=== PATIENT | female | born 1980 | race American Indian/Alaskan Native ===

== ENCOUNTER 2020-03-02 02:44 | Observation (INO) | payer OTHER ==
[2020-03-02] MEDS ORDERED: ASPIRIN 325 MG TAB PO ONE (03:17)
[2020-03-02 03:46] LABS: Basophils # (Auto) 0.1 K/mm3 (0.0-0.1); Eosinophils # (Auto) 0.1 K/mm3 (0.0-0.4); Eosinophils % (Auto) 0.8 % (0.0-4.3); Hematocrit 34.6 % (30.3-42.9); Hemoglobin 11.4 gm/dl (10.1-14.3); Lymphocytes # (Auto) 2.7 K/mm3 (1.2-5.4); Lymphocytes % (Auto) 22.8 % (13.4-35.0); Mean Corpuscular HGB Conc 33 % (30-34); Mean Corpuscular Volume 72 fl (79-97); Monocytes # (Auto) 0.7 K/mm3 (0.0-0.8); Monocytes % (Auto) 5.7 % (0.0-7.3); Platelet Count 353 K/mm3 (140-440); Red Cell Distribution Width 19.5 % (13.2-15.2)
[2020-03-02] MEDS ORDERED: ONDANSETRON 4 MG/2 ML INJ IV ONE (04:01)
[2020-03-02] MEDS ORDERED: MORPHINE 4 MG/1 ML INJ IV ONE (04:01)
--- NOTE | 2020-03-02 04:05 | Emergency Department Report ---
ED Chest Pain HPI - General Chief Complaint: Chest Pain Stated Complaint: CHEST PAIN Time Seen by Provider: 03/02/20 03:40 Source: patient Mode of arrival: Ambulatory Limitations: No Limitations - History of Present Illness Initial Comments: Patient is 39 years old female with history of asthma. Patient presented to the ER complaining of sudden onset of right chest pain approximately 3 hours ago. Patient described her pain as aching and tightness sometimes. Patient stated that pain radiated to her right shoulder and epigastric area. She described described her pain as 10 out of 10. Patient denied any left-sided chest pain. She denied any fever or chills. No cough or shortness of breath. MD Complaint: chest pain -: Sudden, hour(s) (3) Onset: during rest Pain Location: right chest Severity: moderate Quality: sharp - Related Data Allergies Allergy/AdvReac Type Severity Reaction Status Date / Time bupropion [From Wellbutrin] Allergy Rash Verified 03/02/20 03:17 Heart Score - HEART Score History: Slightly suspicious EKG: Normal Age: < 45 Risk factors: No known risk factors Troponin: < normal limit HEART Score: 0 - Critical Actions Critical Actions: 0-3 pts:0.9-1.7%risk of adverse cardiac event.Candidate for discharge ED Review of Systems ROS: Stated complaint: CHEST PAIN Other details as noted in HPI Comment: All other systems reviewed and negative Constitutional: denies: chills, fever Respiratory: denies: cough, shortness of breath, SOB with exertion, SOB at rest, wheezing Cardiovascular: chest pain Gastrointestinal: denies: abdominal pain, nausea, vomiting Musculoskeletal: denies: back pain Neurological: denies: headache, weakness, numbness, paresthesias, confusion ED Past Medical Hx - Past Medical History Previous Medical History?: Yes Hx Psychiatric Treatment: Yes (Depression) Hx Asthma: Yes - Surgical History Past Surgical History?: No - Social History Smoking Status: Never Smoker Substance Use Type: Marijuana ED Physical Exam - General Limitations: No Limitations General appearance: alert, in distress - Head Head exam: Present: atraumatic, normocephalic, normal inspection - Eye Eye exam: Present: normal appearance, PERRL - ENT ENT exam: Present: normal exam, normal orophraynx, mucous membranes moist - Neck Neck exam: Present: normal inspection, full ROM. Absent: tenderness, meningismus, lymphadenopathy, thyromegaly - Respiratory Respiratory exam: Present: normal lung sounds bilaterally - Cardiovascular Cardiovascular Exam: Present: regular rate, normal rhythm, normal heart sounds - GI/Abdominal GI/Abdominal exam: Present: soft, normal bowel sounds. Absent: distended, tend erness, guarding, rebound, rigid, organomegaly, mass, bruit, pulsatile mass, hernia - Extremities Exam Extremities exam: Present: normal inspection, full ROM, normal capillary refill. Absent: pedal edema, calf tenderness - Back Exam Back exam: Present: normal inspection, full ROM. Absent: CVA tenderness (R), CVA tenderness (L) - Neurological Exam Neurological exam: Present: alert, oriented X3, CN II-XII intact, normal gait, reflexes normal. Absent: motor sensory deficit - Psychiatric Psychiatric exam: Present: normal mood, anxious - Skin Skin exam: Present: warm, intact, normal color ED Course Vital Signs 03/02/20 03/02/20 03/02/20 03:21 04:15 04:17 Temperature 98.7 F Pulse Rate 77 76 Respiratory 18 14 18 Rate Blood Pressure 164/86 131/71 O2 Sat by Pulse 96 100 Oximetry 03/02/20 03/02/20 03/02/20 04:30 04:45 04:47 Temperature Pulse Rate 79 81 Respiratory 18 23 18 Rate Blood Pressure 135/67 132/65 O2 Sat by Pulse 92 95 Oximetry 03/02/20 03/02/20 03/02/20 05:00 06:00 06:15 Temperature Pulse Rate 76 100 H 87 Respiratory 20 22 20 Rate Blood Pressure 133/68 115/68 125/60 O2 Sat by Pulse 96 98 99 Oximetry 03/02/20 03/02/20 06:30 06:41 Temperature Pulse Rate 84 96 H Respiratory 20 18 Rate Blood Pressure 122/66 122/66 O2 Sat by Pulse 96 88 Oximetry ED Medical Decision Making - Lab Data Result diagrams: 03/02/20 03:23 03/02/20 03:23 - Radiology Data Radiology results: report reviewed - Medical Decision Making Patient is 39 years old female with history of asthma. Patient presented to the ER complaining of sudden onset of right chest pain approximately 3 hours ago. Patient described her pain as aching and tightness sometimes. Patient stated that pain radiated to her right shoulder and epigastric area. She described described her pain as 10 out of 10. Patient denied any left-sided chest pain. She denied any fever or chills. No cough or shortness of breath. Labs reviewed and showed lower white blood cells. Chest x-ray is unremarkable. D-dimer is negative. Right upper quadrant ultrasound showed cholelithiasis and acute cholecystitis. I discussed the patient with , surgeon, he advised admit the patient to the hospitalist for further management. I discussed the patient with Dr. Angel, he agreed to admit the patient to medical service for further management. Critical care attestation.: If time is entered above; I have spent that time in minutes in the direct care of this critically ill patient, excluding procedure time. ED Disposition Clinical Impression: Abdominal pain, Acute cholecystitis Disposition: 09 OP ADMIT IP TO THIS HOSP Is pt being admited?: Yes Condition: Stable
[2020-03-02 04:06] LABS: BUN/Creatinine Ratio 19; Blood Urea Nitrogen 15 mg/dL (7-17); Calcium 9.5 mg/dL (8.4-10.2); Hemolysis Index 1
[2020-03-02 04:26] LABS: INR 0.93 (0.87-1.13)
[2020-03-02 04:27] LABS: Partial Thromboplastin Time 26.5 Sec. (24.2-36.6)
[2020-03-02 04:42] LABS: Alanine Aminotransferase 20 units/L (7-56); Albumin 4.3 g/dL (3.9-5)
--- NOTE | 2020-03-02 04:43 | XRay Report ---
CHEST 1 VIEW INDICATION: Chest Pain. COMPARISON: None. FINDINGS: Support devices: None. Heart: Normal. Lungs/Pleura: No acute pulmonary or pleural findings. IMPRESSION: 1. No acute findings. Signer Name: Vj Begum MD Signed: 03/02/2020 4:39 AM Workstation Name: [id number]
[2020-03-02 04:44] LABS: Bilirubin,Direct < 0.2 mg/dL (0-0.2)
--- NOTE | 2020-03-02 05:44 | Ultrasound Report ---
ULTRASOUND ABDOMEN, LIMITED (RIGHT UPPER QUADRANT) INDICATION: Right upper quadrant pain.. COMPARISON: None available. FINDINGS: Pancreas: Visualized portion shows no significant abnormality. Liver: Normal. Gallbladder: There are multiple gallstones. There is mild gallbladder wall thickening. Bile ducts: Normal. Common Bile Duct measures 1-2 mm. Free fluid: None. Additional Findings: None. IMPRESSION: 1. Cholelithiasis with mild gallbladder wall thickening. This could be seen in the setting of acute c holecystitis. There is no common duct dilatation. Signer Name: Vj Begum MD Signed: 03/02/2020 5:39 AM Workstation Name: [id number]
[2020-03-02] MEDS ORDERED: PIPERACILLIN/TAZOBACTAM 3.375 3.375 GM/50 ML BAG IV ONE (05:51)
[2020-03-02] MEDS ORDERED: ONDANSETRON 4 MG/2 ML INJ IV PRN (06:42)
--- NOTE | 2020-03-02 06:51 | History and Physical Report ---
History of Present Illness Date of examination: 03/02/20 Date of admission: 03/02/20 06:00 Chief complaint: Chest pain Abdominal pain History of present illness: 39-year-old female with known history of asthma presented to the emergency room today complaining of abdominal pain which is right-sided radiating towards the right side of her chest, right shoulder and mid abdomen. Symptoms started suddenly and has been ongoing for about 3 hours prior to reporting to the emergency room. Pain felt like a dull ache. She has been having nausea and vomiting. On a scale of 10 pain was about 10/10 in severity. She denies any fever or chills, no headache or dizziness, no hematuria or dysuria. No bright red blood per rectum and no melena. Patient denies any sick contacts and no recent travel, denies any contact with anyone with COVID-19. Work-up in the emergency room today reveals acute cholecystitis on ultrasound of the right upper quadrant. General surgeon Dr. Burrell has been consulted by the ER physician for further evaluation. Meanwhile patient started on IV fluid, IV antibiotics and IV analgesic medication. Past History Past Medical History: other (Asthma) Past Surgical History: No surgical history Social history: smoking (Patient vapes), alcohol abuse (Occasional alcohol) Family history: other (Leukemia in mother) Medications and Allergies Allergies Allergy/AdvReac Type Severity Reaction Status Date / Time bupropion [From Wellbutrin] Allergy Rash Verified 03/02/20 03:17 Active Meds: Active Medications Acetaminophen (Tylenol) 650 mg PO Q4H PRN PRN Reason: Pain MILD(1-3)/Fever >100.5/WEBER Sodium Chloride (Nacl 0.9% 1000 Ml) 1,000 mls @ 125 mls/hr IV DIRECT JOHN Morphine Sulfate (Morphine) 2 mg IV Q4H PRN PRN Reason: Pain, Moderate (4-6) Ondansetron HCl (Zofran) 4 mg IV Q8H PRN PRN Reason: Nausea And Vomiting Sodium Chloride (Sodium Chloride Flush Syringe 10 Ml) 10 ml IV BID JOHN Sodium Chloride (Sodium Chloride Flush Syringe 10 Ml) 10 ml IV PRN PRN PRN Reason: LINE FLUSH Review of Systems Constitutional: no fever, no chills Ears, nose, mouth and throat: no nasal congestion, no sore throat Cardiovascular: chest pain, no palpitations Respiratory: no cough, no shortness of breath Gastrointestinal: abdominal pain, nausea, vomiting, no diarrhea, no constipation, no BRBPR, no melena Genitourinary Female: no pelvic pain, no flank pain, no dysuria, no hematuria Musculoskeletal: no neck pain, no low back pain Integumentary: no rash, no pruritis Neurological: no headaches, no confusion Psychiatric: no anxiety, no depression Exam - Constitutional Vitals: Temp Pulse Resp BP Pulse Ox 98.7 F 84 20 122/66 96 03/02/20 03:21 03/02/20 06:30 03/02/20 06:30 03/02/20 06:30 03/02/20 06:30 General appearance: Present: no acute distress, well-nourished - EENT Eyes: Present: PERRL, EOM intact. Absent: scleral icterus ENT: hearing intact, clear oral mucosa, dentition normal - Neck Neck: Present: supple, normal ROM - Respiratory Respiratory effort: normal Respiratory: bilateral: CTA - Cardiovascular Rhythm: regular Heart Sounds: Present: S1 & S2. Absent: gallop, systolic murmur, diastolic murmur, rub - Extremities Extremities: no ischemia, pulses intact, pulses symmetrical, No edema, Full ROM Peripheral Pulses: within normal limits - Abdominal General gastrointestinal: Present: soft, tender, non-distended, normal bowel sounds. Absent: mass Localized gastrointestinal: tender: RUQ, guarding: RUQ - Integumentary Integumentary: Present: clear, warm, dry - Musculoskeletal Musculoskeletal: strength equal bilaterally - Psychiatric Psychiatric: appropriate mood/affect, intact judgment & insight, memory intact, cooperative - Neurologic Neurologic: CNII-XII intact, no focal deficits, moves all extremities HEART Score - HEART Score EKG: Normal Age: < 45 Risk factors: No known risk factors Troponin: Troponin T < 0.010 ng/mL (0.00-0.029) 03/02/20 03:23 Troponin: < normal limit - Critical Actions Critical Actions: 0-3 pts:0.9-1.7%risk of adverse cardiac event.Candidate for discharge Results - Labs CBC & Chem 7: 03/02/20 03:23 03/02/20 03:23 Labs: Abnormal lab results 03/02/20 03/02/20 Range/Units 03:23 03:23 WBC 11.7 H (4.5-11.0) K/mm3 MCV 72 L (79-97) fl MCH 24 L (28-32) pg RDW 19.5 H (13.2-15.2) % Seg Neutrophils # 8.1 H (1.8-7.7) K/mm3 Sodium 136 L (137-145) mmol/L Potassium 3.4 L (3.6-5.0) mmol/L Carbon Dioxide 21 L (22-30) mmol/L Glucose 112 H (65-100) mg/dL Assessment and Plan - Patient Problems (1) Acute cholecystitis Current Visit: Yes Status: Acute Plan to address problem: We will commence on IV fluid and empiric IV antibiotics. Consult has been placed to the general surgeon for evaluation. (2) Abdominal pain Current Visit: Yes Status: Acute Plan to address problem: Possibly secondary to the acute cholecystitis. Will place patient on IV analgesic medication. Patient has been made n.p.o. (3) DVT prophylaxis Current Visit: Yes Status: Acute Plan to address problem: Patient placed on sequential compression device. (4) Full code status Current Visit: Yes Status: Acute
[2020-03-02] MEDS: SODIUM CHLORIDE 0.9% 1000 ML 1,000 ML IV SCH ×2 (08:34→16:58)
--- NOTE | 2020-03-02 12:58 | Nuclear Medicine Report ---
NUCLEAR MEDICINE HEPATOBILIARY SCAN INDICATION / CLINICAL INFORMATION: abd pain. TECHNIQUE: Radiotracer: Tc-99m mebrofenin (by IV): 4.5 mCi. Gallbladder Stimulant: None used. COMPARISON: None available. FINDINGS: HEPATIC ACTIVITY: Normal. BILIARY ACTIVITY: Normal. Common bile duct activity at 10 minutes. GALLBLADDER ACTIVITY: No gallbladder activity is identified. SMALL BOWEL ACTIVITY: Normal at 20 minutes. IMPRESSION: 1. No gallbladder filling is identified. Findings can be seen in the setting of acute cholecystitis, and clinical correlation is recommended. Signer Name: Micah Cruz MD Signed: 03/02/2020 12:53 PM Workstation Name: [id number]
[2020-03-02] MEDS: PIPERACIL/TAZOBACTA 4.5/NS 100 4.5 GM/100 ML VIAL IV SCH ×2 (13:26→21:25)
--- NOTE | 2020-03-02 15:15 | Consultation ---
History of Present Illness - Reason for Consult Consult date: 03/02/20 acute cholecystitis - History of Present Illness 39 year old female with severe epigastic pain 03/01 with radiation to back following a meal who presented to the ER with WBC 12 k, ultrasound with gallstones, mild wall thickening , no pericholecystic fluid, normal LFTs, admitted , made NPO with iv antibiotics and fluids, pain control, Hida scan reveals non vis of GB. Past History Past Medical History: other (Asthma) Past Surgical History: No surgical history Social history: smoking (Patient vapes), alcohol abuse (Occasional alcohol) Family history: other (Leukemia in mother) Medications and Allergies Allergies Allergy/AdvReac Type Severity Reaction Status Date / Time bupropion [From Wellbutrin] Allergy Rash Verified 03/02/20 03:17 Active Meds: Active Medications Acetaminophen (Tylenol) 650 mg PO Q4H PRN PRN Reason: Pain MILD(1-3)/Fever >100.5/WEBER Sodium Chloride (Nacl 0.9% 1000 Ml) 1,000 mls @ 125 mls/hr IV DIRECT [facility] Last Admin: 03/02/20 08:34 Dose: 125 mls/hr Documented by: Piperacillin Sod/Tazobactam Sod (Zosyn/Ns 4.5gm/100ml) 4.5 gm in 100 mls @ 200 mls/hr IV Q8HR [facility]; Protocol Last Admin: 03/02/20 13:26 Dose: 200 mls/hr Documented by: Morphine Sulfate (Morphine) 2 mg IV Q4H PRN PRN Reason: Pain, Moderate (4-6) Ondansetron HCl (Zofran) 4 mg IV Q8H PRN PRN Reason: Nausea And Vomiting Sodium Chloride (Sodium Chloride Flush Syringe 10 Ml) 10 ml IV BID [facility] Last Admin: 03/02/20 13:26 Dose: 10 ml Documented by: Sodium Chloride (Sodium Chloride Flush Syringe 10 Ml) 10 ml IV PRN PRN PRN Reason: LINE FLUSH Review of Systems Constitutional: other (abdominal pain) Gastrointestinal: abdominal pain, nausea Exam - Constitutional Vitals: Temp Pulse Resp BP Pulse Ox 98.7 F 84 20 122/66 96 03/02/20 03:21 03/02/20 06:30 03/02/20 06:30 03/02/20 06:30 03/02/20 06:30 General appearance: Present: no acute distress - EENT Eyes: Present: PERRL ENT: hearing intact, clear oral mucosa - Neck Neck: Present: supple, normal ROM - Respiratory Respiratory effort: normal - Cardiovascular Rhythm: regular Heart Sounds: Present: S1 & S2. Absent: rub, click - Extremities Extremities: pulses symmetrical, No edema Peripheral Pulses: within normal limits - Abdominal General gastrointestinal: Present: non-distended, normal bowel sounds, other (tender to deep palpation RUQ, negative Gil's sing.) Results - Labs CBC & Chem 7: 03/02/20 03:23 03/02/20 03:23 Labs: Abnormal lab results 03/02/20 03/02/20 Range/Units 03:23 03:23 WBC 11.7 H (4.5-11.0) K/mm3 MCV 72 L (79-97) fl MCH 24 L (28-32) pg RDW 19.5 H (13.2-15.2) % Seg Neutrophils # 8.1 H (1.8-7.7) K/mm3 Sodium 136 L (137-145) mmol/L Potassium 3.4 L (3.6-5.0) mmol/L Carbon Dioxide 21 L (22-30) mmol/L Glucose 112 H (65-100) mg/dL Assessment and Plan Acute cholecystitis, continue iv antibiotics, fluids, and pain control, NPO Lap cholecystectomy scheduled for tomorrow.
[2020-03-02] MEDS: MORPHINE 2 MG/1 ML INJ IV PRN ×2 (16:57→21:25)
--- NOTE | 2020-03-02 19:51 | Event Note ---
Date: 03/02/20 Patient admitted early a.m. For lap keke tomorrow morning Surgery consult appreciated
[2020-03-02] MEDS: ACETAMINOPHEN 325 MG TAB PO PRN (21:35)
[2020-03-03] MEDS: PIPERACIL/TAZOBACTA 4.5/NS 100 4.5 GM/100 ML VIAL IV SCH ×3 (05:25→21:16)
[2020-03-03] MEDS: MORPHINE 2 MG/1 ML INJ IV PRN ×3 (05:37→19:48)
[2020-03-03 07:27] LABS: INR 1.12 (0.87-1.13)
[2020-03-03 07:40] LABS: BUN/Creatinine Ratio 10; Blood Urea Nitrogen 8 mg/dL (7-17); Hemolysis Index 2
[2020-03-03 07:51] LABS: Hematocrit 32.1 % (30.3-42.9); Hemoglobin 10.3 gm/dl (10.1-14.3); Mean Corpuscular HGB Conc 32 % (30-34); Mean Corpuscular Volume 74 fl (79-97); Red Blood Count 4.33 M/mm3 (3.65-5.03)
[2020-03-03 07:54] LABS: Red Cell Distribution Width 20.1 % (13.2-15.2)
[2020-03-03 09:14] LABS: Platelet Count TNR K/mm3 (140-440)
[2020-03-03] MEDS: SODIUM CHLORIDE 0.9% 1000 ML 1,000 ML IV SCH (10:19)
--- NOTE | 2020-03-03 13:00 | Anesthesia Consultation ---
Anesthesia Consult and Med Hx Date of service: 03/03/20 - Airway Anesthetic Teeth Evaluation: Good ROM Head & Neck: Adequate Mental/Hyoid Distance: Adequate Mallampati Class: Class II Intubation Access Assessment: Probably Good - Pulmonary Exam CTA: Yes - Cardiac Exam Cardiac Exam: RRR - Pre-Operative Health Status ASA Pre-Surgery Classification: ASA3 Proposed Anesthetic Plan: General - Pulmonary Hx Smoking: Yes (vapes) Hx Asthma: Yes (last inhaler use 1 wk ago; albuterol prn only) Hx Respiratory Symptoms: No - Cardiovascular System Hx Hypertension: No Hx Heart Attack/AMI: No Hx Percutaneous Transluminal Coronary Angioplasty (PTCA): No Hx Cardia Arrhythmia: No - Central Nervous System CVA: No - Gastrointestinal Hx Gastroesophageal Reflux Disease: No - Endocrine Hx Renal Disease: No Hx Liver Disease: No Hx Insulin Dependent Diabetes: No Hx Non-Insulin Dependent Diabetes: No Hx Thyroid Disease: No - Hematic Hx Anemia: Yes - Other Systems Hx Obesity: Yes (BMI 40) - Additional Comments Anesthesia Medical History Comments: No hx anesthetic complications. No N/V vomiting >24hrs.
[2020-03-03] MEDS ORDERED: ONDANSETRON 4 MG/2 ML INJ IV PRN (13:01)
--- NOTE | 2020-03-03 13:01 | Anesthesia Day of Surgery ---
Anesthesia Day of Surgery - Day of Surgery Patient Examined: Yes Patient H&P Reviewed: Yes Patient is NPO: Yes
--- NOTE | 2020-03-03 13:08 | Progress Note ---
Subjective Date of service: 03/03/20 Interval history: Patient seen and examined No specific complaints Alert and oriented Denies nausea vomiting fever or chills Scheduled for lap cholecystectomy today Will await further recommendations by general surgery Assessment and plan Acute cholecystitis Scheduled for surgery today Objective - Constitutional Vitals: Vital Signs - 12hr 03/03/20 03/03/20 03/03/20 05:04 05:07 11:55 Temperature 97.9 F 97.9 F 98.1 F Pulse Rate 77 72 Respiratory 18 18 16 Rate Blood Pressure 108/54 94/47 Blood Pressure 99/46 [Left] O2 Sat by Pulse 91 94 Oximetry 03/03/20 12:25 Temperature 98.6 F Pulse Rate 72 Respiratory 18 Rate Blood Pressure 127/70 Blood Pressure [Left] O2 Sat by Pulse 96 Oximetry General appearance: Present: no acute distress - EENT Eyes: PERRL, EOM intact ENT: hearing intact, clear oral mucosa - Neck Neck: supple, normal ROM - Respiratory Respiratory effort: normal Respiratory: bilateral: CTA - Breasts Breasts: deferred - Cardiovascular Rhythm: regular Heart Sounds: Present: S1 & S2 Extremities: No edema - Gastrointestinal General gastrointestinal: Present: soft, tender (Right upper quadrant). Absent: hepatomegaly, splenomegaly Rectal Exam: deferred - Genitourinary Female genitourinary: deferred - Musculoskeletal Musculoskeletal: strength equal bilaterally - Neurologic Neurologic: no focal deficits - Psychiatric Psychiatric: appropriate mood/affect - Labs CBC & Chem 7: 03/03/20 06:39 03/03/20 06:39 Labs: Abnormal lab results 03/03/20 03/03/20 Range/Units 06:39 06:39 MCV 74 L (79-97) fl MCH 24 L (28-32) pg RDW 20.1 H (13.2-15.2) % Chloride 107.7 H (98-107) mmol/L Carbon Dioxide 20 L (22-30) mmol/L Calcium 8.0 L D (8.4-10.2) mg/dL HEART Score - HEART Score EKG: Normal Age: < 45 Risk factors: No known risk factors Troponin: Troponin T < 0.010 ng/mL (0.00-0.029) 03/02/20 08:59 Troponin: < normal limit - Critical Actions Critical Actions: 0-3 pts:0.9-1.7%risk of adverse cardiac event.Candidate for discharge
[2020-03-03] MEDS ORDERED: HYDROmorphone 1 MG/1 ML INJ IV ONE (13:13)
[2020-03-03] MEDS ORDERED: MIDAZOLAM 2 MG/2 ML INJ IV NR (14:00)
[2020-03-03] MEDS ORDERED: SCOPOLAMINE TRANSDERMAL PATCH 72 HR TD NR (14:00)
[2020-03-03] MEDS ORDERED: ONDANSETRON 4 MG/2 ML INJ ONE (14:41)
[2020-03-03] MEDS ORDERED: LIDOCAINE MPF (2%) 20 MG/1 ML VIAL 5 ML ONE (14:41)
[2020-03-03] MEDS ORDERED: ROCURONIUM 50 MG/5 ML INJ IV ONE (14:41)
[2020-03-03] MEDS ORDERED: HYDROmorphone 1 MG/1 ML INJ ONE (14:41)
[2020-03-03] MEDS ORDERED: propofoL 200 MG/20 ML VIAL IV ONE (14:41)
[2020-03-03] MEDS ORDERED: dexAMETHasone 20 MG/5 ML VIAL ONE (14:41)
[2020-03-03] MEDS ORDERED: BUPIVACAINE/PF (0.25%) 2.5 MG/ML 30 ML VIAL INFILTRATI ONE (15:13)
[2020-03-03] MEDS ORDERED: LIDOCAINE (1%) 10 MG/1 ML VIAL 20 ML MDV ONE (15:13)
[2020-03-03] MEDS ORDERED: NEOSTIGMINE 10MG/10 ML INJ MDV ONE (16:16)
[2020-03-03] MEDS ORDERED: GLYCOPYRROLATE 0.4 MG/2 ML INJ ONE (16:16)
[2020-03-03] MEDS ORDERED: KETOROLAC 30 MG/1 ML INJ ONE (16:20)
[2020-03-03] MEDS ORDERED: LIDOCAINE (1%) 10 MG/1 ML VIAL 20 ML MDV INFILTRATI ONE (16:31)
[2020-03-03] MEDS ORDERED: BUPIVACAINE/PF (0.5%) 5 MG/1 ML 30 ML VIAL INFILTRATI ONE (16:31)
[2020-03-03] MEDS ORDERED: SODIUM CHLORIDE 0.9% IRRIG SOLN 2000 ML IR ONE (16:32)
[2020-03-03] MEDS ORDERED: SIMETHICONE 80 MG CHEW TAB PO PRN (16:37)
--- NOTE | 2020-03-03 16:37 | Procedure Note ---
Date of procedure: 03/03/20 Pre-op diagnosis: acute cholecystitis Post-op diagnosis: same Procedure: Laparoscopic cholecystectomy Findings: acute cholecystitis Anesthesia: NED Surgeon: TERE HOLMAN Fire Extinguisher Mechanic: JYOTI GRAY Estimated blood loss: minimal Pathology: none (GB) Condition: stable Disposition: floor
[2020-03-03] MEDS: HYDROmorphone 1 MG/1 ML INJ IV PRN (17:58)
--- NOTE | 2020-03-03 18:10 | Post Anesthesia Evaluation ---
- Post Anesthesia Evaluation Patient Participated: Yes Airway Patent: Yes Stable Respiratory Function: Yes Nausea/Vomiting: No Temp > 96.8F: Yes Pain Manageable: Yes Adequeate Hydration: Yes Anesthesia Complications: No
[2020-03-03] MEDS: ACETAMINOPHEN 325 MG TAB PO PRN (19:49)
[2020-03-04] MEDS: HYDROmorphone 1 MG/1 ML INJ IV PRN (00:07)
[2020-03-04] MEDS: SODIUM CHLORIDE 0.9% 1000 ML 1,000 ML IV SCH (02:06)
[2020-03-04] MEDS: PIPERACIL/TAZOBACTA 4.5/NS 100 4.5 GM/100 ML VIAL IV SCH ×2 (05:58→13:17)
[2020-03-04] MEDS ORDERED: HEPARIN 5,000 UNIT/1 ML VIAL SUB-Q SCH (06:00)
[2020-03-04] MEDS: MORPHINE 2 MG/1 ML INJ IV PRN (06:10)
[2020-03-04 06:20] LABS: Basophils % (Auto) 0.1 % (0.0-1.8); Hematocrit 31.3 % (30.3-42.9); Hemoglobin 10.5 gm/dl (10.1-14.3); Lymphocytes # (Auto) 0.9 K/mm3 (1.2-5.4); Lymphocytes % (Auto) 9.2 % (13.4-35.0); Mean Corpuscular HGB Conc 34 % (30-34); Mean Corpuscular Volume 71 fl (79-97); Monocytes # (Auto) 0.3 K/mm3 (0.0-0.8); Monocytes % (Auto) 2.6 % (0.0-7.3); Platelet Count 314 K/mm3 (140-440); Red Blood Count 4.39 M/mm3 (3.65-5.03); Red Cell Distribution Width 19.8 % (13.2-15.2)
--- NOTE | 2020-03-04 07:20 | Discharge Summary ---
Providers - Providers Date of Admission: 03/02/20 06:00 Attending physician: JANE KAM MD 03/02/20 05:53 Consult to Physician [CONS] Stat Comment: Dr. Sellers spoke with Dr. Burrell @ [phone] Consulting Provider: TERE BURRELL Physician Instructions: Reason For Exam: Acute cholecystitis Hospitalization Reason for admission: abdominal pain Condition: Stable Hospital course: 39-year-old female with known history of asthma presented to the emergency room today complaining of abdominal pain which is right-sided radiating towards the right side of her chest, right shoulder and mid abdomen. Symptoms started suddenly and has been ongoing for about 3 hours prior to reporting to the emergency room. Pain felt like a dull ache. She has been having nausea and vomiting. On a scale of 10 pain was about 10/10 in severity. She denies any fever or chills, no headache or dizziness, no hematuria or dysuria. No bright red blood per rectum and no melena. Patient denies any sick contacts and no recent travel, denies any contact with anyone with COVID-19. Work-up in the emergency room today reveals acute cholecystitis on ultrasound of the right upper quadrant. General surgeon Dr. Burrell has been consulted by the ER physician for further evaluation. Meanwhile patient started on IV fluid, IV antibiotics and IV analgesic medication. Weight loss counselling provided Patient underwent Lap keke yesterday and is post op day 1. Acute cholecystitis Morbid Obesity Disposition: TO HOME OR SELFCARE Time spent for discharge: 35 mins Core Measure Documentation - Palliative Care Palliative Care/ Comfort Measures: Not Applicable - Core Measures Any of the following diagnoses?: none Exam - Physical Exam Narrative exam: General appearance: Present: no acute distress - EENT Eyes: PERRL, EOM intact ENT: hearing intact, clear oral mucosa - Neck Neck: supple, normal ROM - Respiratory Respiratory effort: normal Respiratory: bilateral: CTA - Breasts Breasts: deferred - Cardiovascular Rhythm: regular Heart Sounds: Present: S1 & S2 Extremities: No edema - Gastrointestinal General gastrointestinal: Present: soft, tender (Right upper quadrant) at surgical site. Absent: hepatomegaly, splenomegaly Rectal Exam: deferred - Genitourinary Female genitourinary: deferred - Musculoskeletal Musculoskeletal: strength equal bilaterally - Neurologic Neurologic: no focal deficits - Psychiatric Psychiatric: appropriate mood/affect - Constitutional Vitals: Temp Pulse Resp BP Pulse Ox 98.2 F 71 18 101/41 92 03/04/20 04:26 03/04/20 04:26 03/04/20 04:26 03/04/20 04:26 03/04/20 04:26 Plan Activity: advance as tolerated, fall precautions Diet: low fat Wound: per your surgeon's advice Special Instructions: record daily weights, record daily BP diary Follow up with: PRIMARY CAREMD [Referring] - 3-5 Days TERE BURRELL MD [Staff Physician] - 7 Days Prescriptions: oxyCODONE /ACETAMINOPHEN [Percocet 5/325 mg] 1 tab PO Q4H PRN #14 tablet PRN Reason: Pain, Moderate (4-6) Ondansetron [Zofran Odt] 4 mg PO Q6H #14 tab.rapdis
--- NOTE | 2020-03-04 08:04 | Event Note ---
Date: 03/04/20 POD 1 VSS AF, hemodyn stable, OK to discharge home , I will follow up in my office in one week, no need for further antibiotics, pain meds only, shower only, no baths. Resume regular diet at home. My office number is [phone]/ call for appt. labs ok this am and so are vital signs.
[2020-03-04] MEDS: oxyCODONE /ACETAMINOPHEN 5-325MG TAB PO PRN ×2 (09:18→13:22)
[2020-03-04 13:28] VITALS: BP 120/73
== END 2020-03-04 15:07 | disposition home or self-care (01) ==
LOC: ED 02:44 → 3A 06:00
PROVIDERS: ADMIT Internal Medicine Geriatric Medicine; ATTEND Internal Medicine
PROC: 0FT44ZZ Resection of Gallbladder, Percutaneous Endoscopic Approach (ICD-10-PCS; principal; 2020-03-03)
DX: K80.10 Calculus of gallbladder with chronic cholecystitis without obstruction (principal); J45.909 Unspecified asthma, uncomplicated; F32.9 Major depressive disorder, single episode, unspecified
CPT/HCPCS: 36415; 47562; 71045; 76705; 78226; 80048; 80076; 84484; 84703; 85025; 85379; 85610; 85730; 87040; 88304; 93005; 96361; 96365; 96366; 96372; 96375; 96376; 99284; A4217; A9537; G0378; J1100; J1170; J1644; J1885; J2250; J2270; J2405; J2543; J2704; J2710; J7030